=== PATIENT | female | born 1965 | race Caucasian/White ===

== ENCOUNTER 2018-07-24 17:07 | Emergency (ER) | payer MEDICAID ==
[2018-07-24 17:17] VITALS: BP 117/76
[2018-07-24] MEDS ORDERED: TDAP ADULT 0.5 ML INJ (BOOSTRIX) IM ONE (17:40)
--- NOTE | 2018-07-24 17:53 | EDPHY ---
H & P Time Seen by Provider: 07/24/18 17:50 HPI/ROS: HPI Avulsion laceration to left thumb. 52-year-old female by private vehicle. She is right-hand dominant. She reports that last night she was using a sharp knife to cut some vegetables when she accidentally got a small piece of skin and flash off the distal ulnar aspect of her left thumb. She presents to the emergency department stating that it is still bleeding. She does not think sutures are necessary. She does not remember the last time she had a tetanus shot. She is right-hand dominant. ROS: Constitutional: No fever, no chills. No weakness. Skin: No rashes. As above. Neurological: No focal weakness or altered sensation. Past medical history: Noncontributory. Social history: She is here by herself. No alcohol. Nonsmoker. Physical Exam: General Appearance: Alert, no distress. This patient is responding to questions appropriately and in full sentences. This patient appears well- hydrated and well-nourished. Skin: Warm and dry, no rashes. She has a small avulsion type laceration to the ulnar aspect distal left thumb tip. It measures 3 mm by approximately 5 mm. It is not suturable. The left thumb is otherwise neurovascularly intact. There is no evidence retained foreign body. There is no evidence of infection. No pulsatile bleeding. It has some very mild venous oozing. Extremities are symmetrical. All joints range without pain or impingement. Psychiatric: No agitation. No depression. Database: EKG: Imaging: Procedures: Emergency department course: Triage vital signs were reviewed. The distal left thumb wound was irrigated and cleansed appropriately. No foreign body on gross inspection. I applied a small piece of Surgicel to the wound. This was then followed by application of a Band-Aid and fine gauze dressing. The patient was given a Tdap vaccination. She feels comfortable going home. Follow-up and return to emergency department precautions were reviewed with her. All of her questions were answered. She was discharged from the emergency department in good condition. Differential Diagnosis: The differential diagnosis on this patient includes but is not limited to left thumb tip for avulsion injury. Retained foreign body, bony involvement, infection, significant neurovascular injury unlikely. This represents a partial list of diagnoses considered. These considerations are based on history , physical exam, past history, reassessment and diagnostic testing. Smoking Status: Never smoked Constitutional: Initial Vital Signs Temperature (C) 36.9 C 07/24/18 17:14 Heart Rate 77 07/24/18 17:14 Respiratory Rate 18 07/24/18 17:14 Blood Pressure 117/76 07/24/18 17:14 O2 Sat (%) 98 07/24/18 17:14 O2 Delivery Mode Room Air Allergies/Adverse Reactions: No Known Allergies Allergy (Unverified 07/24/18 17:13) Home Medications: Medication Instructions Recorded NK [No Known Home Meds] 07/24/18 Departure - Departure Disposition: Home, Routine, Self-Care Clinical Impression: Laceration of left thumb Condition: Good Instructions: Skin Avulsion (ED) Additional Instructions: Read and follow provided instructions. Follow-up with your primary care physician in to days for re-evaluation. Keep wound area and dressing dry and clean. Keep in place for 2 days. Ibuprofen dosin mg every 6 hours with meals for the next 3 days only. Take only as needed for pain. Return to the emergency department for bleeding, worsening pain, swelling, discoloration, drainage of pus or other serious concerns. Referrals: NONE *PRIMARY CARE P,. [Primary Care Provider] - As per Instructions
== END 2018-07-24 18:13 | disposition home or self-care (01) ==
DX: S61.012A Laceration without foreign body of left thumb without damage to nail, initial encounter (principal); Z23 Encounter for immunization; W26.0XXA Contact with knife, initial encounter; Y93.G1 Activity, food preparation and clean up; Y99.9 Unspecified external cause status

== ENCOUNTER 2018-09-06 19:34 | Emergency (ER) | payer MEDICAID | END 2018-09-06 22:32 | disposition home or self-care (01) | DX: N83.201 Unspecified ovarian cyst, right side (principal) ==